=== PATIENT | female | born 1990 | race Caucasian/White ===

== ENCOUNTER 2023-03-09 11:41 | Emergency (ER) | payer BC, SELFPAY ==
[2023-03-09 12:10] LABS: Bacteria/HPF None Seen HPF (None Seen); Bilirubin Negative (Negative); Blood, Urine Negative (Negative); CAUTI Indications for Culture Dysuria,urgency,freq; Clarity Clear (Clear); Glucose, Urine (Dipstick) Normal (Negative); Ketone, Urine Negative (Negative); Leukocyte Negative Leu/uL (Negative); Nitrite Negative (Negative); Protein, Urine (Dipstick) Negative (Neg-Trace); RBC/HPF 0-3 HPF (0-3); Specific Gravity, Urine 1.004 (1.002-1.036); Squamous Epithelial 0-3 HPF (0-3); Urobilinogen Normal mg/dL (Less than 2); WBC/HPF None Seen HPF (0-3); pH, Urine 7.5 (5.0-9.0)
[2023-03-09 12:12] LABS: Urine Culture Reflex No No
== END 2023-03-09 12:45 | disposition home or self-care (01) ==
LOC: ERS 11:41
DX: O26.892 Other specified pregnancy related conditions, second trimester (principal); R10.2 Pelvic and perineal pain; O99.332 Smoking (tobacco) complicating pregnancy, second trimester; F17.210 Nicotine dependence, cigarettes, uncomplicated; F17.220 Nicotine dependence, chewing tobacco, uncomplicated; Z3A.14 14 weeks gestation of pregnancy
CPT/HCPCS: 81001; 99284

== ENCOUNTER 2025-03-04 12:45 | Emergency (ER) | payer OTHER ==
[2025-03-04] MEDS ORDERED: Acetaminophen 500 MG TAB ONE (13:38)
[2025-03-04] MEDS ORDERED: Lidocaine 1% PF 5 ML VIAL ONE (13:38)
== END 2025-03-04 16:21 | disposition home or self-care (01) ==
LOC: ERS 12:45
DX: B34.9 Viral infection, unspecified (principal); L03.011 Cellulitis of right finger; F17.290 Nicotine dependence, other tobacco product, uncomplicated; Z23 Encounter for immunization
CPT/HCPCS: 71045; 87081; 87428; 87430; 90471; 90715